=== PATIENT | female | born 1940 | race Caucasian/White ===

== ENCOUNTER 2020-05-27 12:37 | Inpatient (IN) | payer MEDICARE ==
[~2020-05-27] VITALS: Ht 152.4 cm; Wt 34.5 kg
[2020-05-27 13:15] VITALS: BP 160/74
[2020-05-27 13:46] LABS: URINE BILIRUBIN NEGATIVE (Negative); URINE BLOOD TRACE (Negative); URINE CLARITY CLEAR; URINE COLOR YELLOW; URINE GLUCOSE-RANDOM NEGATIVE (Negative); URINE KETONES TRACE (Negative); URINE LEUKOCYTES-REFLEX NEGATIVE (Negative); URINE NITRITE-REFLEX NEGATIVE (Negative); URINE PROTEIN TRACE (Negative)
[2020-05-27 13:52] LABS: ABSOLUTE BASOPHILS 0.1 thou/uL (0.0-0.2); ABSOLUTE EOSINOPHILS 0.2 thou/uL (0.0-0.7); ABSOLUTE LYMPHOCYTES 0.8 thou/uL (0.8-5.3); ABSOLUTE MONOCYTES 0.4 thou/uL (0.0-1.2); ABSOLUTE NEUTROPHILS 5.5 thou/uL (1.6-8.1); BASOPHILS 1.1 %; EOSINOPHILS 2.7 %; HEMATOCRIT 29.8 % (37.0-47.0); HEMOGLOBIN 9.9 gm/dL (12.0-15.0); LYMPHOCYTES 11.9 %; MCH 28.8 pg (26.0-34.0); MCHC 33.1 g/dL (28.0-37.0); MONOCYTES 6.2 %; MPV 8.4 fl. (7.2-11.1); NUCLEATED RBCS 0 /100WBC; PLATELET COUNT* 307 thou/uL (150-400); POLYS 78.1 %; RBC 3.42 mil/uL (4.20-5.00); RDW-CV 15.3 % (10.5-14.5)
[2020-05-27 14:05] LABS: CALCIUM 7.8 mg/dL (8.5-10.1); CREATININE 0.6 mg/dL (0.6-1.3)
[2020-05-27 14:14] LABS: POTASSIUM 2.8 mmol/L (3.5-5.1)
[2020-05-27 14:19] LABS: ALBUMIN 2.7 g/dL (3.4-5.0); TOTAL BILIRUBIN 0.5 mg/dL (<0.1-1.0); TOTAL PROTEIN 7.8 g/dL (6.4-8.2)
[2020-05-27 15:29] VITALS: BP 165/87
[2020-05-27 15:45] VITALS: BP 122/75
[2020-05-27 16:35] LABS: % SATURATION 8 % (20-39); IRON 30 ug/dL (50-175)
--- NOTE | 2020-05-27 18:56 | NUR ---
PATIENT ARRIVED FROM ER THIS AFTERNOON. PATIENT IS A POOR HISTORIAN. PATIENT HAS A PACEMAKER. PATIENT STATES SHE HASN'T TAKEN ANY PRESCRIPTIONS IN OVER A YEAR DUE TO NOT BEING ABLE TO GET THEM. PATIENT INFESTED WITH LICE. PATIENT TREATED WITH PERMETHRIN. PATIENT HAS WOUNDS TO BILATERAL LOWER EXTREMITIES WHICH WITH COVERED WITH TOILET PAPER. WOUNDS CLEANED WITH WOUND DETECTIVE SERGEANT AND LEFT OPEN TO AIR, NO DRAINAGE AT THIS TIME. DR MONTERROSO CONSULTED. PATIENT STATES SHE DOES NOT HAVE VERY MUCH FOOD AT HOME AND HAS EATEN WELL THIS EVENING, BOTH DINNER AND BOX LUNCH. PATIENT DENIES ANY NEEDS AT THIS TIME. CALL LIGHT WITHIN REACH.
[2020-05-27 19:44] VITALS: BP 146/69
[2020-05-27 22:00] VITALS: BP 112/62
--- NOTE | 2020-05-28 04:44 | NUR ---
PT A&O X 4. MEDS GIVEN ORDERED. PAIN MANAGED WITH NORCO. WOUNDS TO LE BILAT OPEN TO AIR. PADS UNDER LEGS FOR MINIMAL DRAINAGE. PT UP WITH SBA. ISOLATION MAINTAINED. CALL LIT WITHIN REACH. WILL CONTINUE TO MONITOR.
[2020-05-28 05:00] LABS: HEMATOCRIT 26.3 % (37.0-47.0); HEMOGLOBIN 8.6 gm/dL (12.0-15.0); MCH 28.7 pg (26.0-34.0); MCHC 32.6 g/dL (28.0-37.0); MPV 8.2 fl. (7.2-11.1); RBC 2.99 mil/uL (4.20-5.00); RDW-CV 15.3 % (10.5-14.5); WBC 3.4 thou/uL (4.0-11.0)
[2020-05-28 05:35] LABS: CALCIUM 7.9 mg/dL (8.5-10.1); CREATININE 0.6 mg/dL (0.6-1.3); MAGNESIUM 2.2 mg/dL (1.8-2.4); POTASSIUM 3.7 mmol/L (3.5-5.1)
[2020-05-28 08:00] VITALS: BP 120/55
[2020-05-28 16:40] VITALS: BP 151/81
--- NOTE | 2020-05-28 17:42 | NUR ---
PATIENT RESTING IN BED. PATIENT IS UP STANDBY ASSIST. PATIENT SEEN BY DR MONTERROSO THIS AM. PATIENT HAD ARTERIAL ULTRASOUND THIS AFTERNOON. PATIENT HAD COMPLAINTS OF BILATERAL LEG PAIN THIS AM TREATED WITH HYDROCODONE. PATIENT HAS EXCELLENT APPETITE AND ENSURE SUPPLEMENTS GIVEN WELL. PATIENT DENIES ANY NEEDS AT THIS TIME. CALL LIGHT WITHIN REACH.
[2020-05-28 22:38] VITALS: BP 132/72
--- NOTE | 2020-05-29 04:26 | NUR ---
PT A&OX4, ROBINSON. PT VSS ON ROOM AIR, UP WITH SBA TO BR, CONTACT ISOLATION MAINTAINED, NO C/O PAIN THIS SHIFT, PT SLEEPING WELL. WILL CONTINUE TO MONITOR.
[2020-05-29 04:44] LABS: HEMATOCRIT 23.6 % (37.0-47.0); HEMOGLOBIN 7.6 gm/dL (12.0-15.0); MCH 28.6 pg (26.0-34.0); MCHC 32.2 g/dL (28.0-37.0); MCV 88.7 fL (80.0-100.0); MPV 7.9 fl. (7.2-11.1); RBC 2.66 mil/uL (4.20-5.00); RDW-CV 15.5 % (10.5-14.5); WBC 5.5 thou/uL (4.0-11.0)
[2020-05-29 05:03] LABS: CALCIUM 7.3 mg/dL (8.5-10.1); CREATININE 0.7 mg/dL (0.6-1.3); MAGNESIUM 1.8 mg/dL (1.8-2.4)
[2020-05-29 08:35] VITALS: BP 172/80
--- NOTE | 2020-05-29 11:44 | EKG ---
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1940 Requested By: Reena Davis Order Number: [id number] MD: Abhijit Mcdaniel Measurements Intervals [place] Rate: 83 P: 68 ME: 196 QRS: -86 QRSD: 141 T: 77 QT: 450 QTc: 529 Interpretive Statements Atrial-sensed ventricular-paced rhythm No further analysis attempted due to paced rhythm No previous ECG available for comparison Electronically Signed On 05-29-2020 11:44:23 MARINA DRY DOCK MANAGER by Abhijit Mcdaniel [email or web address] <ELECTRONICALLY SIGNED> By: Abhijit Mcdaniel MD, FACC 05/29/20 1144 1318 1318 Abhijit Mcdaniel MD, [facility] /EPI
--- NOTE | 2020-05-29 13:47 | NUR ---
WOUND NURSE: PATIENT SEEN TO ADDRESS BLE WOUNDS. ALL PRESENT SHALLOW LESIONS MEASURING 0.1 TO 0.2 CM DEEP. WOUNDS WERE CLUSTERED ON EACH LEG. LEFT LEG MEASURES 15 X 15 CM. RIGHT LEG MEASURES 10 X 25 CM AND INVOLVES THE CIRCUMFERENCE OF THE LEG. WOUND BEDS WITH PARTIALLY DRIED YELLOW EXUDATE PRESENT IN THE BEDS. LEGS WITH REDDISH DISCOLORATION. PATIENT REPORTS TENDER TO CARE PROVIDED. THERE IS MINIMAL PERIPHERAL EDEMA. FEET ARE WARM WITH 3 SECOND CAPILLARY REFILL. PATIENT WITH PALPABLE PEDAL PULSES BILATERALLY. PATIENT HAS PODIATRY CONSULT. CLEANSED WITH SOAP AND WATER, RINSED, THEN PATTED DRY. APPLIED LOTION TO INTACT SKIN TOES TO KNEE. APPLIED XEROFORM GAUZE UNDER ABD'S, THEN WRAPPED WITH KERLEX ROLL GAUZE UNDER CHRIS WRAPS TOES TO KNEE. THIS WAS TOLERATED WELL BY THE PATIENT. PATIENT REPORTS SHE LIVES ALONE AND DOES NOT HAVE FAMILY. PATIENT ALSO REPORTS SHE DOES NOT HAVE ACCESS TO FOOD AT HER HOME SO SHE DOESN'T EAT MORE THAN ONE MEAL PER DAY AND SOMETIMES MISSES EATING ALL TOGETHER. PAGED DR. STARKEY AND EXPLAINED THIS PATIENT MAY NEED TO BE HOTLINED SHE SOUNDS TO BE SELF NEGLECTED. THIS WAS SHARED WITH BRANDO IN CASE MANAGEMENT AND PATIENT'S NURSE, CEFERINO. ALSO ASSISTED IMPROVEMENT LEADER WITH TREATING THIS PATIENT FOR PEDICULOSIS CAPITIS USING NIX.
--- NOTE | 2020-05-29 15:18 | NUR ---
Pt is A&O. Resides at home alone. Neighbors brought Pt in, concern regarding her living situation. Pt states that she has limited family support, states that she's been having her groceries delivered. Pt has a walker and cane that she uses for mobility. No hx of HH or SNF. Podiatry consulted. Per machine tool technology instructor, Pt up ambulating. Plan home with HH and CM plans to hotline Pt, to get her linked in to community services that may assist with helping her to be more successful at home. Following.
[2020-05-29 15:49] VITALS: BP 131/75
--- NOTE | 2020-05-29 18:34 | NUR ---
Pt remained alert and oriented for entire shift. Pt has edema with open sores to both lower extremeties. Pt's head was inspected and found to still have head lice crawling in it. Pt's hair was washed and treated with lice treatment then showered. Wound care nurse then wrapped pt's legs. Pt's dressings will need changed every other day. Pt denies any pain. Pt gets up to bedside commode with Stand By Assist. Pt's Vancomycin trough was drawn and came back 9 mcg/ml. Pharmacy adjusted pt's dose. Med given per pharmacy. Next trough to be drawn 05/31 @ 1600. Bed alarm on. Call light within reach.
[2020-05-29 20:54] VITALS: BP 145/62
[2020-05-30 08:30] VITALS: BP 101/56
[2020-05-30 16:00] VITALS: BP 121/58
--- NOTE | 2020-05-30 16:37 | NUR ---
Pt remained A&O x4 for entire shift. Pt remains friendly with staff. Pt denies any pain. Pt continues to have a good appetite, finishing all of her meals and drinking some ensure. Pt worked with PT today. Pt walks to bathroom with Stand By Assist. Pt had a BM today. Pt's scalp was inspected and no live Lice bugs were found. Pt given IV abx per AUG. Bed is in low position, call light within reach, bed/chair alarm on.
--- NOTE | 2020-05-30 18:18 | NUR ---
PATIENT ADMITTED FROM PACU TO ROOM 316. ALERT AND ORIENTED X 4. AT BEDSIDE. PRN PERCOCET GIVEN THIS EVENING FOR CPM PLACEMENT. IVF INFUSING, SCHED ABX TO INFUSE. DRESSING TO LEFT KNEE D/I, HEMOVAC IN PLACE. REG DIET. ORIENTED TO CALL LIGHT. CALL LIGHT WITHIN REACH.
[2020-05-31] VITALS: BP 109/56
[2020-05-31 06:22] LABS: HEMATOCRIT 21.3 % (37.0-47.0); MCH 28.5 pg (26.0-34.0); MCHC 32.4 g/dL (28.0-37.0); MPV 7.8 fl. (7.2-11.1); NUCLEATED RBCS 0 /100WBC; PLATELET COUNT* 253 thou/uL (150-400); RBC 2.42 mil/uL (4.20-5.00); RDW-CV 15.5 % (10.5-14.5)
[2020-05-31 06:31] LABS: ALBUMIN 1.5 g/dL (3.4-5.0); CREATININE 0.6 mg/dL (0.6-1.3); POTASSIUM 3.4 mmol/L (3.5-5.1); TOTAL BILIRUBIN 0.7 mg/dL (<0.1-1.0)
[2020-05-31 06:33] LABS: CALCIUM 5.8 mg/dL (8.5-10.1)
[2020-05-31 06:37] LABS: HEMOGLOBIN 6.9 gm/dL (12.0-15.0)
--- NOTE | 2020-05-31 07:19 | NUR ---
PATIENT SLEPT WELL. USES CALL LIGHT APPROPRIATELY FOR ASSISTANCE TO BATHROOM. PT IS STEADY ON HER FEET. PT DENIES PAIN/NAUSEA DURING THIS SHIFT. PT WITH ANTIBIOTICS INFUSING PER DR ORDER. HEAD WAS CHECKED FOR HEADLICE AND NO LICE OR NITS FOUND. WILL CONTINUE TO MONITOR.
[2020-05-31 07:46] LABS: ABSOLUTE EOSINOPHILS 0.9 thou/uL (0.0-0.7); ABSOLUTE LYMPHOCYTES 0.8 thou/uL (0.8-5.3); ABSOLUTE MONOCYTES 0.2 thou/uL (0.0-1.2); ABSOLUTE NEUTROPHILS 2.1 thou/uL (1.6-8.1); PLATELET ESTIMATE ADEQUATE
[2020-05-31 08:15] VITALS: BP 121/73
[2020-05-31 11:02] VITALS: BP 109/54; BP 113/62; BP 122/63; BP 128/67
[2020-05-31 16:19] LABS: HEMATOCRIT 32.9 % (37.0-47.0); HEMOGLOBIN 10.8 gm/dL (12.0-15.0)
[2020-05-31 16:43] VITALS: BP 118/73
--- NOTE | 2020-05-31 19:11 | NUR ---
Pt continues to be pleasant with staff. Pt continues to have a good appetite. Pt denies any pain. Pt's calcium replaced. Pt's IV leaking and given new IV in Right Forearm. Pt received 1 unit of blood this morning. No complications. Pt wound dressings changed. Pt denies any pain. Pt up SBA to bathroom. Bed in low position, call light within reach.
[2020-05-31 20:00] VITALS: BP 120/79
[2020-06-01 04:54] LABS: ABSOLUTE BASOPHILS 0.2 thou/uL (0.0-0.2); ABSOLUTE EOSINOPHILS 0.9 thou/uL (0.0-0.7); ABSOLUTE LYMPHOCYTES 1.2 thou/uL (0.8-5.3); ABSOLUTE MONOCYTES 0.5 thou/uL (0.0-1.2); ABSOLUTE NEUTROPHILS 3.3 thou/uL (1.6-8.1); EOSINOPHILS 13.9 %; HEMATOCRIT 32.7 % (37.0-47.0); HEMOGLOBIN 10.8 gm/dL (12.0-15.0); LYMPHOCYTES 20.2 %; MCH 28.8 pg (26.0-34.0); MCV 87.3 fL (80.0-100.0); MONOCYTES 8.6 %; MPV 7.7 fl. (7.2-11.1); NUCLEATED RBCS 0 /100WBC; PLATELET COUNT* 297 thou/uL (150-400); POLYS 54.3 %; RBC 3.74 mil/uL (4.20-5.00); RDW-CV 15.1 % (10.5-14.5); WBC 6.1 thou/uL (4.0-11.0)
[2020-06-01 05:07] LABS: ALBUMIN 2.3 g/dL (3.4-5.0); CREATININE 0.7 mg/dL (0.6-1.3); TOTAL BILIRUBIN 0.2 mg/dL (<0.1-1.0)
--- NOTE | 2020-06-01 05:09 | NUR ---
PATIENT SLEPT WELL DURING THIS SHIFT. PT USES CALL LIGHT APPROPRIATELY FOR ASSISTANCE TO BATHROOM. NO HEADLICE OR NITS FOUND. PT TAKES PILLS CRUSHED IN APPLESAUCE. SALINE LOCKED AT THIS TIME. FREQUENTLY USED ITEMS AND CALL LIGHT WITHIN REACH. SIDERAILS UPX2 AND BED ALARM ON. WILL CONTINUE TO MONITOR.
[2020-06-01 05:21] LABS: CALCIUM 8.6 mg/dL (8.5-10.1); POTASSIUM 5.1 mmol/L (3.5-5.1)
[2020-06-01 08:30] VITALS: BP 145/66
[2020-06-01 12:07] LABS: CALCIUM 8.7 mg/dL (8.5-10.1); CREATININE 0.6 mg/dL (0.6-1.3); POTASSIUM 5.2 mmol/L (3.5-5.1)
[2020-06-01 16:26] VITALS: BP 135/76
--- NOTE | 2020-06-01 16:41 | NUR ---
PT.AGREEABLE TO GO TO SNF FOR SHORT TERM. DISCUSSED WITH HER AND Roxanne MOORE LOGISTICS MANAGER . TALKED ABOUT DIFFERENT FACILITIES. SHE WOULD LIKE EITHER [facility] OR [facility]. SHE WANTS A [facility] FACILITY,NOT [facility]EC[facility]ILY [facility] BUT THAT WOULD BE OK. VICTORIA WITH MED ASSIST SAW PT. AND TALKED TO HER ABOUT MEDICAID. SHE SAID SHE MADE A COPY OF PTS DRIVERS LICENSE AND IT HAD A EXPIRATION DATE OF 2014 ON IT. PT.TOLD HER SHE STILL DROVE. REFERRALS FAXED TO [facility] [phone] AND [facility] [phone]. ASSISTED HER IN CALLING HER NEIGHBOR,[place] ON PHONE. SHE KNEW HER PHONE NUMBER.
--- NOTE | 2020-06-01 17:45 | NUR ---
PATIENT RESTING IN BED. PATIENT IS UP STANDBY ASSIST. PATIENT HAS EXCELLENT APPETITE/ PATIENT HAS DENIED ANY PAIN. PATIENT HAS DRESSING TO BLE DRY AND INTACT. PATIENT DENIES ANY NEEDS AT THIS TIME. CALL LIGHT WITHIN REACH.
[2020-06-01 20:30] VITALS: BP 117/59
--- NOTE | 2020-06-02 04:22 | NUR ---
PATIENT SLEPT PART OF THE NIGHT. DRESSINGS TO BILATERAL LOWER LEGS REMAIN INTACT. PATIENT HAD NO COMPLAINTS OF PAIN. IV REMAINS SALINE LOCKED. PATIENT COULD POSSIBLY DISCHARGE TO SKILLED FACILITY TODAY. WILL CONTINUE TO MONITOR.
[2020-06-02 08:30] VITALS: BP 135/81
[2020-06-02] MEDS ORDERED: HYDROCODON-ACE1 EAC7 PO (09:20)
[2020-06-02] MEDS ORDERED: KEFLEX500 M1 PO (09:21)
--- NOTE | 2020-06-02 13:46 | NUR ---
WOUND NURSE: PATIENT SCHEDULED TO SEE DR. MONTERROSO ON THURSDAY 06/07 AT 1400.
--- NOTE | 2020-06-02 15:50 | NUR ---
[facility] WERE NOT ACCEPTING PTS. [facility] COULD NOT ACCEPT PT. FAXED REFERRALS TO [facility] [place]. [facility] CALLED AND SAID THEY CAN ACCEPT PT.TO [facility] TODAY. DISCUSSED WITH PT. SHE WAS AGREEABLE. NOTIFIED [facility]. SHE WILL ARRANGE WC VAN AND LET CM KNOW TIME OF DIE MAKER STAMPING.
--- NOTE | 2020-06-02 16:00 | NUR ---
ALISA FREED WILL PICK PT.UP ABOUT 5PM. OUMAR MCLEOD NOTIFIED. CHART COPIED TO GO WITH PT. MCLEOD TO CALL REPORT TO [facility]. ENOCH FAXED DISCHARGE ORDERS AND SUMMARY ALONG WITH WOUND CARE ORDERS TO [facility]/I [phone].
--- NOTE | 2020-06-02 17:10 | NUR ---
PATIENT DISCHARGED TO [facility]. REPORT CALLED TO [facility]. PATIENT BELONGINGS PACKED AND SENT WITH PATIENT. PATIENT PROVIDED CLEAN CLOTHES FROM REHAB CLOSET. COPY OF CHART AND DIACHARGE ORDERS GIVEN TO TRANSPORTER. IV REMOVED. PATIENT TAKEN BY WHEELCHAIR VAN AT THIS TIME.
--- NOTE | 2020-06-06 17:15 | CON ---
[address] [address] CONSULTATION Name: STACIESHERRILUCIO Burleson Nedra Room: [address] IN ..#: [id number] Admission: 05/27/20 Attend Phys: Zackray Garcia MD Discharge: 06/02/20 Date of : 44 Report #: [id number] THIS REPORT FOR: cc: FAM - Family physician unknown FAM - Family physician unknown ~ Edwar Lyle DPM DATE OF SERVICE: 05/28/2020 ADMISSION DIAGNOSIS: Leg wounds with cellulitis. HISTORY OF PRESENT ILLNESS/CHIEF COMPLAINT: A 79-year-old female admitted to the hospital for very poor living conditions with inability to care for herself and severe leg wounds with cellulitis. She appears to have chronic venous insufficiency with a component of peripheral arterial disease. She has been wrapping the wounds on her legs with toilet paper and ____ on her toenails and have severe dystrophy and elongated and elise's horn deformities. She is a poor historian, with poor hearing and difficulty giving a past medical history. She is currently nonambulatory in bed, she relates mild pain to her legs with touch. She is on parenteral vancomycin and Rocephin. She lives alone. Blood cultures are negative x 2. Arterial Doppler has been ordered. LABORATORY DATA: WBC 3.4, ____. PHYSICAL EXAMINATION: Temperature 99.0, pulse 67, respirations 16, blood pressure 120/55. Both legs are inflamed with advanced erythema and multiple areas of superficial ulceration with pale fibrotic wound beds. Her legs and feet are warm with faintly palpable dorsalis pedis and posterior tibial pulses bilaterally. There is no pallor or cyanosis. Her toenails are severely dystrophic with elise's horn deformities, particularly to the first and second toes. The wounds to her legs are shallow with yellow/pale fibrotic wound beds with no exposed bone or tendon. She has multiple wounds to both legs, ranging in size from 5 mm to several centimeters in diameter. No popliteal adenopathy or calf pain bilaterally. Negative Homans' and Ulloa sign of both lower extremities. IMPRESSION: Venous insufficiency, peripheral arterial disease, lower extremity cellulitis with superficial ulcerations. PLAN: I recommend her legs to be cleansed thoroughly with application of Xeroform over the open wounds and light compressive [place] [address] CONSULTATION Name: MOLLYLUCIO A Room: [address]#: [id number] Admission: 05/27/20 Attend Phys: Zackary Garcia MD Discharge: 06/02/20 Date of : 44 Report #: [id number] Kerlix and Mg bandages. Continue parenteral antibiotics and discussed with the patient about facility placement. <ELECTRONICALLY SIGNED> By: Edwar Lyle DPM 06/06/20 1715 0809 0830Edwar Lyle DPM /mahesh
--- NOTE | 2020-06-06 17:15 | CON ---
[address] [address] CONSULTATION Name: MOLLYLUCIO Nedra Room: [address] IN M.R.#: [id number] Admission: 05/27/20 Attend Phys: Zackary Garcia MD Discharge: 06/02/20 Date of : 44 Report #: [id number] THIS REPORT FOR: cc: FAM - Family physician unknown FAM - Family physician unknown ~ Edwar Lyle DPM DATE OF SERVICE: 05/29/2020 CHIEF COMPLAINT: Followup of bilateral lower extremity ulcerations with cellulitis and diffuse peripheral arterial disease. HISTORY OF PRESENT ILLNESS: She is on parenteral vancomycin and ceftriaxone. Doppler arterial ultrasound shows diffuse atherosclerosis to both lower extremities with roughly 50% stenosis to the femoral system, but no evidence of focal stenosis amenable to endovascular surgery. She has a good appetite, relates low grade leg pain. She has remained nonweightbearing. She will likely require placement post discharge, due to her current living conditions and inability to care for herself. LABORATORY DATA: WBC 5.5, RBC 2.66, hemoglobin 7.6, hematocrit 23.6, platelets 257. BUN 31, creatinine 0.7, glucose 93. PHYSICAL EXAMINATION: Temperature 99.0, pulse 86, respirations 16, blood pressure 131/75. Both legs are wrapped with below the knee compression bandages performed by the wound nurse earlier today. Her toes are warm and pink with capillary refill roughly 0.5 seconds. No paronychia noted. IMPRESSION: Cellulitis, bilateral lower extremities with peripheral arterial disease, failure to thrive, chronic anemia, debility. PLAN: From a wound perspective, I recommend continuing gentle compression to both legs with likely transition to oral antibiotics when discharged. She does not require any surgical debridement regarding the leg wounds. She needs improved nutrition and long-term physical therapy. I can follow her at [facility] after her discharge regarding her leg wounds. <ELECTRONICALLY SIGNED> By: Edwar Lyle DPM 06/06/20 1715 1803 1821Dvicky Lyle DPM /nt
== END 2020-06-02 17:10 | DRG 602 ==
LOC: M.ERS 12:37 → M.TBA-ER 14:02 → M.3W 14:02
PROVIDERS: Nurse Practitioner; Physician Assistant; ADMIT Internal Medicine; ATTEND Internal Medicine
PROC: 30233N1 Transfusion of Nonautologous Red Blood Cells into Peripheral Vein, Percutaneous Approach (ICD-10-PCS; principal; 2020-05-31)
DX: L03.116 Cellulitis of left lower limb (principal); E43 Unspecified severe protein-calorie malnutrition; R65.10 Systemic inflammatory response syndrome (SIRS) of non-infectious origin without acute organ dysfunction; Z68.1 Body mass index [BMI] 19.9 or less, adult; L03.115 Cellulitis of right lower limb; Z20.828 Contact with and (suspected) exposure to other viral communicable diseases; J45.909 Unspecified asthma, uncomplicated; R62.7 Adult failure to thrive; E87.6 Hypokalemia; I73.9 Peripheral vascular disease, unspecified; I10 Essential (primary) hypertension; I87.2 Venous insufficiency (chronic) (peripheral); E83.51 Hypocalcemia; D63.8 Anemia in other chronic diseases classified elsewhere; Z28.21 Immunization not carried out because of patient refusal; Z95.0 Presence of cardiac pacemaker; Z88.0 Allergy status to penicillin

== ENCOUNTER 2021-02-26 18:16 | Inpatient (IN) | payer OTHER ==
[~2021-02-26] VITALS: Ht 124.5 cm; Wt 44.0 kg
[~2021-02-26 18:16] MED LIST: HYDROCODON-ACE1 EAC7 PO; KEFLEX500 M1 PO
[2021-02-26 18:21] VITALS: BP 135/65
[2021-02-26 19:38] LABS: ABSOLUTE BASOPHILS 0.1 thou/uL (0.0-0.2); ABSOLUTE EOSINOPHILS 0.1 thou/uL (0.0-0.7); ABSOLUTE LYMPHOCYTES 0.9 thou/uL (0.8-5.3); ABSOLUTE MONOCYTES 0.7 thou/uL (0.0-1.2); BASOPHILS 0.7 %; EOSINOPHILS 1.6 %; HEMATOCRIT 33.1 % (37.0-47.0); HEMOGLOBIN 10.8 gm/dL (12.0-15.0); LYMPHOCYTES 10.3 %; MCHC 32.6 g/dL (28.0-37.0); MCV 92.1 fL (80.0-100.0); MONOCYTES 7.7 %; MPV 8.5 fl. (7.2-11.1); NUCLEATED RBCS 0 /100WBC; PLATELET COUNT* 256 thou/uL (150-400); POLYS 79.7 %; RDW-CV 13.1 % (10.5-14.5); WBC 8.8 thou/uL (4.0-11.0)
[2021-02-26 19:46] LABS: CALCIUM 8.5 mg/dL (8.5-10.1); CREATININE 0.9 mg/dL (0.6-1.3); POTASSIUM 3.4 mmol/L (3.5-5.1)
[2021-02-26 19:51] LABS: TOTAL BILIRUBIN 0.7 mg/dL (<0.1-1.0); TOTAL PROTEIN 7.1 g/dL (6.4-8.2)
[2021-02-26 20:49] LABS: URINE BILIRUBIN NEGATIVE (Negative); URINE BLOOD NEGATIVE (Negative); URINE CLARITY CLEAR; URINE COLOR YELLOW; URINE GLUCOSE-RANDOM NEGATIVE (Negative); URINE KETONES 2+ (Negative); URINE LEUKOCYTES-REFLEX NEGATIVE (Negative); URINE NITRITE-REFLEX NEGATIVE (Negative); URINE PROTEIN TRACE (Negative); URINE UROBILINOGEN 0.2 E.U./dl (0.2-1.0)
[2021-02-27] VITALS: BP 153/64
[2021-02-27 08:11] VITALS: BP 153/64
--- NOTE | 2021-02-27 10:11 | EKG ---
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: CLAIRE : 1940 Requested By: Haider Magdaleno Order Number: [id number] MD: Abhijit Mcdaniel Measurements Intervals [place] Rate: 93 P: 61 WV: 210 QRS: -83 QRSD: 132 T: 82 QT: 416 QTc: 518 Interpretive Statements Atrial-sensed ventricular-paced rhythm No further analysis attempted due to paced rhythm Compared to ECG 05/27/2020 13:18:11 No significant changes Electronically Signed On 02-27-2021 10:11:28 CDT by Abhijit Mcdaniel [email or web address] <ELECTRONICALLY SIGNED> By: Abhijit Mcdaniel MD, FACC 02/27/21 1011 185 Abhijit Mcdaniel MD, FAC /EPI
[2021-02-27 12:11] VITALS: BP 125/59
[2021-02-27 16:11] VITALS: BP 132/64
--- NOTE | 2021-02-27 17:46 | NUR ---
Pt is a poor historian and unable to provide much information as to how she got in this condition. Pt has old wound dressings and socks that she is not able to tell how long they've been on. Maggots are present on her wounds. Pt is currently living alone but was previously living with a friend. Previous admissions stated neighbor Sarah watches out for her but no contact charted for Sarah.
[2021-02-27] MEDS ORDERED: NORCO5 PO (18:52)
[2021-02-27 19:55] VITALS: BP 141/69
[2021-02-27 21:10] VITALS: BP 124/81
[2021-02-28 02:19] VITALS: BP 146/68
[2021-02-28 05:01] LABS: MCH 30.6 pg (26.0-34.0); MCHC 33.5 g/dL (28.0-37.0); MCV 91.3 fL (80.0-100.0); MPV 8.5 fl. (7.2-11.1); RBC 3.29 mil/uL (4.20-5.00); RDW-CV 13.4 % (10.5-14.5); WBC 6.3 thou/uL (4.0-11.0)
[2021-02-28 05:11] LABS: ALBUMIN 2.3 g/dL (3.4-5.0); CALCIUM 7.7 mg/dL (8.5-10.1); CREATININE 1.2 mg/dL (0.6-1.3); MAGNESIUM 2.1 mg/dL (1.8-2.4); POTASSIUM 3.4 mmol/L (3.5-5.1); TOTAL BILIRUBIN 0.2 mg/dL (<0.1-1.0); TOTAL PROTEIN 5.9 g/dL (6.4-8.2)
--- NOTE | 2021-02-28 05:24 | NUR ---
REPORT RECIEVED FROM ER. PT ORIENTED TO ROOM, CALL LIGHT SHOWN, FALL AGREEMENT WENT OVER, PT STATED UNDERSTANDING. ADMISSION DOCUMENTED. MEDS GIVEN PER E-MAR. IV PATENT. NO REPORTS OF PAIN. FALL PRECAUTIONS IN PLACE. PT ABLE TO MAKE NEEDS KNOWN. WILL CONTINUE WITH PLAN OF CARE.
[2021-02-28 05:32] VITALS: BP 126/79
[2021-02-28 08:00] VITALS: BP 122/65
[2021-02-28 13:33] VITALS: BP 113/71
--- NOTE | 2021-02-28 16:24 | NUR ---
On ivabx. Per dtr Pt will need SNF to LTC. Med Assist to screen for [facility]. CM trying to locate neighbor's number. Therapies to see.
--- NOTE | 2021-02-28 16:38 | NUR ---
WOUND NURSE: PATIENT WAS SEEN YESTERDAY IN THE ED BY DR. OFE DPM AND BY THIS NURSE. WOUND CARE WAS PERFORMED TO BLE PRESCRIBED BY DR. THAKUR THEN AND AGAIN BY THIS NURSE TODAY. A C&S WAS TAKEN FROM RLE WOUND AND SENT TO LAB. PATIENT IS NOT RECEPTIVE TO TEACHING AT THIS TIME. WILL REVISIT THIS LATER WITHPATIENT. WOUND AGAIN PRESENT SHALLOW CIRCIFORM EROSIONS CONTAINING RED, NONGRANULATING TISSUE IN THE WOUND BED, PERIWOUND REDNESS PRESENT. NO UNUSUAL WARMTH, MILD EDEMA. WOUND CARE PERFORMED PRESCRIBED.
--- NOTE | 2021-02-28 19:05 | NUR ---
PT HAS BEEN RESTING ON HER BED CALLING OUT TO GET HELP TO THE BATHROOM. PT HAS SALINE LOCK IN HER RIGHT FOREARM USING THIS FOR HGER ANTIBIOTICS. WILL CONTINUE TO TO MONITOR PLAN OF CARE. PT WOUNDS WERE CULTURED TODAY.
[2021-02-28 19:18] VITALS: BP 118/65
[2021-02-28 22:30] VITALS: BP 120/67
[2021-03-01 02:30] VITALS: BP 122/72
[2021-03-01 08:00] VITALS: BP 151/75
--- NOTE | 2021-03-01 10:48 | NUR ---
WOUND NURSE: CHECKED PATIENT'S DRESSINGS ON BLE. THEY REMAIN CDI AND WITHOUT COMPLAINTS OF PAIN OR OTHER DISCOMFORT BY THE PATIENT. WILL CONTINUE WITH CURRENT POC.
[2021-03-01 12:50] LABS: ABSOLUTE BASOPHILS 0.1 thou/uL (0.0-0.2); ABSOLUTE EOSINOPHILS 0.4 thou/uL (0.0-0.7); ABSOLUTE LYMPHOCYTES 0.9 thou/uL (0.8-5.3); ABSOLUTE MONOCYTES 0.5 thou/uL (0.0-1.2); ABSOLUTE NEUTROPHILS 3.5 thou/uL (1.6-8.1); BASOPHILS 1.2 %; EOSINOPHILS 7.4 %; HEMOGLOBIN 10.7 gm/dL (12.0-15.0); LYMPHOCYTES 17.3 %; MCH 30.1 pg (26.0-34.0); MCHC 32.5 g/dL (28.0-37.0); MCV 92.8 fL (80.0-100.0); MONOCYTES 8.7 %; MPV 8.8 fl. (7.2-11.1); NUCLEATED RBCS 0 /100WBC; PLATELET COUNT* 255 thou/uL (150-400); POLYS 65.4 %; RBC 3.55 mil/uL (4.20-5.00); RDW-CV 13.8 % (10.5-14.5); WBC 5.3 thou/uL (4.0-11.0)
[2021-03-01 12:59] LABS: ALBUMIN 2.8 g/dL (3.4-5.0); CALCIUM 8.2 mg/dL (8.5-10.1); CREATININE 1.2 mg/dL (0.6-1.3); POTASSIUM 3.8 mmol/L (3.5-5.1); TOTAL BILIRUBIN 0.2 mg/dL (<0.1-1.0)
[2021-03-01 16:00] VITALS: BP 121/70
--- NOTE | 2021-03-01 17:02 | NUR ---
Plan SNF to LTC. CM faxed referral to [place].
[2021-03-01 20:45] VITALS: BP 130/67
[2021-03-02 05:28] VITALS: BP 128/62
--- NOTE | 2021-03-02 06:35 | NUR ---
PT SLEPT WELL AFTER MIDNIGHT. TAKING PILLS CRUSHED IN ICE CREAM WITHOUT DIFFICULTY. TYLENOL GIVEN FOR CO BLE PAIN WITH GOOD RESULT. RFA SL. PO ABX GIVEN ORDERED. WEARS BRIEFS FOR STRESS INCONTINENCE. ABLE TO USE CALL LITE AND MAKE NEEDS KNOWN. UP WITH SBA AND CANE TO BR TO VOID OVERNIGHT, TAKES EXTRA TIME TO TOILET. BLE DRSGS CDI. CM FOLLOWING FOR DC PLACEMENT. BED ALARM ON FOR SAFETY.
[2021-03-02 08:30] VITALS: BP 121/72
[2021-03-02 08:53] LABS: ABSOLUTE BASOPHILS 0.1 thou/uL (0.0-0.2); ABSOLUTE EOSINOPHILS 0.5 thou/uL (0.0-0.7); ABSOLUTE LYMPHOCYTES 0.7 thou/uL (0.8-5.3); ABSOLUTE MONOCYTES 0.4 thou/uL (0.0-1.2); ABSOLUTE NEUTROPHILS 3.7 thou/uL (1.6-8.1); BASOPHILS 1.1 %; EOSINOPHILS 9.4 %; HEMATOCRIT 31.3 % (37.0-47.0); HEMOGLOBIN 10.5 gm/dL (12.0-15.0); LYMPHOCYTES 12.9 %; MCH 30.7 pg (26.0-34.0); MCHC 33.6 g/dL (28.0-37.0); MCV 91.5 fL (80.0-100.0); MONOCYTES 7.6 %; NUCLEATED RBCS 0 /100WBC; PLATELET COUNT* 249 thou/uL (150-400); RBC 3.42 mil/uL (4.20-5.00); RDW-CV 13.5 % (10.5-14.5); WBC 5.4 thou/uL (4.0-11.0)
[2021-03-02 08:58] LABS: CALCIUM 8.5 mg/dL (8.5-10.1); CREATININE 1.3 mg/dL (0.6-1.3); POTASSIUM 3.5 mmol/L (3.5-5.1)
[2021-03-02 12:00] VITALS: BP 112/67
--- NOTE | 2021-03-02 14:50 | NUR ---
Pt discharging to [place] [facility] today. Faxed dc orders. Facility to warehouse order picker and transport at 530pm. CM left for Pt's neighbor, Sarah, . Chart copied.
[2021-03-02 15:04] VITALS: BP 112/67
[2021-03-02 18:09] VITALS: BP 112/67
--- NOTE | 2021-03-02 18:10 | NUR ---
PATIENT DISCHARGED AT THIS TIME VIA WHEELCHAIR, ACCOMPANIED BY TRANSPORT TO [facility]. REPORT GIVEN TO SHANI. IV DC'D, COTTON AND TAPE TO SITE. DRESSINGS TO LOWER LEGS C/D/I. PERSONAL BELONGINGS GATHER AND SENT WITH PATIENT. ALL QUESTIONS AND CONCERNS ADDRESSED.
== END 2021-03-02 18:00 | DRG 603 ==
LOC: M.ERS 18:16 → M.2W 20:11 → M.TBA-ER 20:11 → M.2W 02-27 21:20
PROVIDERS: Internal Medicine; Nurse Practitioner Psychiatric/Mental Health; ADMIT Internal Medicine; ATTEND Internal Medicine
DX: L03.115 Cellulitis of right lower limb (principal); E44.1 Mild protein-calorie malnutrition; L97.929 Non-pressure chronic ulcer of unspecified part of left lower leg with unspecified severity; L97.919 Non-pressure chronic ulcer of unspecified part of right lower leg with unspecified severity; L03.116 Cellulitis of left lower limb; B87.89 Myiasis of other sites; I87.2 Venous insufficiency (chronic) (peripheral); R62.7 Adult failure to thrive; Z20.822 Contact with and (suspected) exposure to COVID-19; J45.909 Unspecified asthma, uncomplicated; Z95.0 Presence of cardiac pacemaker; Z88.0 Allergy status to penicillin; Z88.8 Allergy status to other drugs, medicaments and biological substances; Z88.6 Allergy status to analgesic agent; Z91.041 Radiographic dye allergy status; Z68.28 Body mass index [BMI] 28.0-28.9, adult